=== PATIENT | male | born 1960 | race African-American/Black ===

== ENCOUNTER 2016-04-19 11:26 | Emergency (ER) | payer BC ==
[~2016-04-19] VITALS: Ht 172.7 cm; Wt 102.1 kg
[2016-04-19] MEDS ORDERED: NKM (11:34)
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
[2016-04-19] MEDS ORDERED: TRAMADOL HCL50 MG ORAL (13:25)
[2016-04-19] MEDS ORDERED: IBUPROFEN600 MG ORAL (13:25)
[2016-04-19 13:38] VITALS: BP 151/99
--- NOTE | 2016-04-19 14:07 | Diagnostic Imaging Report ---
Indication: pain Findings: 3 views of the right hand were obtained. There are fractures of the distal fourth and fifth metacarpals. These are probably old. Please correlate clinically. There is evidence of an old scaphoid waist fracture. This has been reduced by a Srinivas screw. Bones appear slightly osteopenic which may be related to hyperemia and/or disuse. Impression: No obvious acute injury.
== END 2016-04-19 13:44 | disposition home or self-care (01) ==
LOC: EMR 12:10
DX: S62.394A Other fracture of fourth metacarpal bone, right hand, initial encounter for closed fracture (principal); S62.396A Other fracture of fifth metacarpal bone, right hand, initial encounter for closed fracture; W55.82XA Struck by other mammals, initial encounter; Y92.89 Other specified places as the place of occurrence of the external cause; F17.200 Nicotine dependence, unspecified, uncomplicated
CPT/HCPCS: 29125

== ENCOUNTER 2016-06-15 09:32 | Emergency (ER) | payer BC ==
[~2016-06-15] VITALS: Ht 172.7 cm; Wt 104.3 kg
[~2016-06-15 09:32] MED LIST: IBUPROFEN600 MG ORAL; NKM; TRAMADOL HCL50 MG ORAL
[2016-06-15 09:46] VITALS: BP 141/80
[2016-06-15] MEDS ORDERED: IBUPROFEN600 MG ORAL (10:22)
[2016-06-15] MEDS ORDERED: CYCLOBENZAPRINE10 MG ORAL (10:22)
[2016-06-15 10:31] VITALS: BP 126/83
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
== END 2016-06-15 10:31 | disposition home or self-care (01) ==
LOC: EMR 10:00
DX: T14.8 Other injury of unspecified body region (principal); X58.XXXA Exposure to other specified factors, initial encounter; Y92.9 Unspecified place or not applicable; Y99.8 Other external cause status
CPT/HCPCS: 99284